=== PATIENT | female | born 1955 | race Caucasian/White ===

== ENCOUNTER → 2024-09-19 | Outpatient (CLI) | payer MEDICARE, OTHER, SELFPAY ==
--- NOTE | 2024-09-19 13:45 | XR_ITS ---
Examination: Screening digital mammography, bilateral Computer aided detection 3-D breast Tomosynthesis, bilateral Date and time of exam: September 19, 2024 at 1345 hours No priors Indication: Screening Technique: Nonmagnified MLO, CC views of the breasts to been obtained, reconstructed from 3-D Tomosynthesis images. R2 computer aided detection program utilized for evaluation of suspicious masses and/or abnormal calcifications. 3-D Tomosynthesis images obtained. Findings: Scattered areas of fibroglandular density 8 mm circumscribed nodule retroareolar region left breast Benign calcifications Impression: BI-RADS Category 2: Benign findings Recommend follow-up spot tomographic views retroareolar nodule left breast as well as left breast sonography to complete the workup
--- NOTE | 2024-09-19 14:00 | XR_ITS ---
Examination: Bone densitometry Date and time of exam:September 19, 2024 1402 hours INDICATIONS: Menopause age 52 Technique: Lumbar spine and hip total bone mineralization values of an calculated. Peak reference and age match control results have been displayed. Findings: Lumbar spine total bone mineralization is0.921 gm/cm2. This is 1.1 standard deviations below peak reference. This is 0.8 standard deviations above age-matched controls. Hip total bone mineralization is 0.865 gm/cm2 This is 0.6 standard deviations below peak reference. This is 0.7 standard deviations above age-matched controls Impression: There is osteopenia based on lumbar spine measurements. There is osteopenia based on hip measurements
== END | disposition home or self-care (01) ==
LOC: CDIM 13:29
PROVIDERS: Referring Provider Family Medicine; Visit Provider Family Medicine
DX: Z12.31 Encounter for screening mammogram for malignant neoplasm of breast (principal); R92.323 Mammographic fibroglandular density, bilateral breasts; N63.42 Unspecified lump in left breast, subareolar; M85.89 Other specified disorders of bone density and structure, multiple sites
CPT/HCPCS: 77063; 77067; 77080

== ENCOUNTER → 2024-10-02 | Outpatient (CLI) | payer MEDICARE, OTHER, SELFPAY ==
[2024-10-02 14:53] LABS: Basophils % (Auto) 1 % (0-2.5); Eosinophils # (Auto) 0.2 Thou/mm3 (0.0-0.5); Eosinophils % (Auto) 4 % (0-10); Hematocrit 38.1 % (36.0-46.0); Hemoglobin 12.6 g/dL (12.0-16.0); Immature Granulocytes % (Auto) 0 % (0-0); Immature Granulocytes Auto 0.02 Thou/mm3 (0.00-0.00); Lymphocytes # (Auto) 1.4 Thou/mm3 (1.0-4.8); Lymphocytes % (Auto) 25 % (10-50); Mean Corpuscular HGB Conc 33.1 g/dl (31.0-37.0); Mean Corpuscular Hemoglobin 29.7 pg (25.0-35.0); Mean Corpuscular Volume 90 fL (80-100); Monocytes # (Auto) 0.6 Thou/mm3 (0.0-0.8); Monocytes % (Auto) 11 % (0-12); Neutrophils # (Auto) 3.3 Thou/mm3 (1.8-7.7); Neutrophils % (Auto) 59 % (37-80); Nucleated Red Blood Cell % 0 /100 WBC (0); Platelet Count 229 Thou/mm3 (140-440); Red Blood Count 4.24 Miln/mm3 (4.00-5.20); White Blood Count 5.6 Thou/mm3 (3.6-11.0)
[2024-10-02 14:57] LABS: Alanine Aminotransferase 43 U/L (10-49); Albumin, Serum 4.7 gm/dL (3.4-4.8); Albumin/Globulin Ratio 2.1 (1.2-2.2); Alkaline Phosphatase 127 U/L (46-116); Anion Gap 9 (7-16); Aspartate Amino Transferase 34 U/L (0-34); BUN/Creatinine Ratio 13 Ratio (12-20); Bilirubin,Total 0.5 mg/dL (0.3-1.2); Blood Urea Nitrogen 10 mg/dL (9-23); Calcium 8.9 mg/dL (8.3-10.6); Calcium (Corrected) 8.9 mg/dL (8.5-10.1); Carbon Dioxide 29.5 mMol/L (20.0-31.0); Cardiac Risk Estimate 5.8 RATIO (3.7-5.6); Chloride 105 mMol/L (98-107); Cholesterol 286 mg/dL (132-200); Creatinine (Component) 0.8 mg/dL (0.6-1.3); Globulin 2.2 gm/dL (2.3-3.5); Glucose 98 mg/dL (74-106); HDL Cholesterol 49 mg/dL (40-60); LDL Cholesterol,Calculated 211 mg/dL (0-130); Osmolality,Calculated 283 (275-295); Potassium 4.6 mMol/L (3.4-5.1); Sodium 143 mMol/L (136-145); Total Protein 6.9 gm/dL (5.7-8.2); Triglycerides 131 mg/dL (30-150); eGFR > 60 See Note
== END | disposition home or self-care (01) ==
LOC: COPL 13:23
PROVIDERS: PCP Family Medicine; Referring Provider Family Medicine; Visit Provider Family Medicine
DX: I10 Essential (primary) hypertension (principal); I48.91 Unspecified atrial fibrillation; E78.5 Hyperlipidemia, unspecified
CPT/HCPCS: 36415; 80053; 80061; 85025

== ENCOUNTER → 2024-10-26 | Outpatient (CLI) | payer MEDICARE, OTHER, SELFPAY ==
--- NOTE | 2024-10-26 09:58 | XR_ITS ---
Examination: PA lateral chest 2 views TECHNIQUE: Upright PA lateral chest 2 views. Date and time: October 26, 2024 1024 hours Comparison May 09, 2019. INDICATIONS: Coughing 3 weeks. FINDINGS: Minor subsegmental atelectasis left base. Normal heart size. No pneumonia or pulmonary edema. Moderate osteopenia. IMPRESSION: No pneumonia or pulmonary edema.
== END | disposition home or self-care (01) ==
LOC: CDIM 09:33
PROVIDERS: PCP Family Medicine; Referring Provider Student in an Organized Health Care Education/Training Program; Visit Provider Student in an Organized Health Care Education/Training Program
DX: R05.9 Cough, unspecified (principal)
CPT/HCPCS: 71046

== ENCOUNTER 2024-10-30 10:34 | Emergency (ER) | payer MEDICARE, OTHER, SELFPAY ==
[2024-10-30 10:47] VITALS: BP 175/98; PULSE 82; RESP 17; TEMP 36.8; O2SAT 96; BMI 26.5
--- NOTE | 2024-10-30 11:07 | XR_ITS ---
Examination: CT soft tissue neck with intravenous contrast CT chest with intravenous contrast 2-D coronal and sagittal reconstructions Time of exam: October 30, 2024 1614 hours INDICATIONS: Left-sided neck swelling and coughing today CTDI: vol (mGy) : 25 DLP: (mGycm): 661 Technique: Multiple axial images of the chest, soft tissue neck with intravenous contrast, 3.0 mm slice thickness. Images obtained post intravenous injection Isovue 370 50 cc. 2-D sagittal and coronal reconstructions. Low dose protocols were performed. One or more of the following dose reduction techniques were used; automated exposure control, adjustment of the mA and/or KV according to patient size, use of iterative reconstruction technique. Findings: Symmetrical optic globes Symmetrical nasopharynx oropharynx Small nonspecific carotid triangle lymph nodes Symmetrical parotid glands The larynx appears normal Thyroid lobes exhibit symmetry, 3 mm right thyroid nodule Normal epiglottis No prevertebral soft tissue prominence Significant osteopenia No thoracic aortic aneurysmal dilatation No pulmonary artery filling defects No paratracheal tracheobronchial or bronchopulmonary adenopathy No pneumonia or pulmonary edema or pleural disease Fatty infiltration throughout the liver Follow-up versus small gallstone No pancreatic or splenic or adrenal mass No hydronephrosis IMPRESSION: No soft tissue neck mass or pathologic lymphadenopathy No mediastinal lymphadenopathy No pneumonia, pulmonary edema, pleural disease or pulmonary nodules
[2024-10-30 11:28] LABS: Lactate (Lactic Acid) 1.1 mMol/L (0.4-2.0)
[2024-10-30 11:37] LABS: Basophils % (Auto) 1 % (0-2.5); Eosinophils # (Auto) 0.2 Thou/mm3 (0.0-0.5); Eosinophils % (Auto) 3 % (0-10); Hematocrit 39.6 % (36.0-46.0); Hemoglobin 13.1 g/dL (12.0-16.0); Immature Granulocytes % (Auto) 1 % (0-0); Immature Granulocytes Auto 0.05 Thou/mm3 (0.00-0.00); Lymphocytes # (Auto) 1.4 Thou/mm3 (1.0-4.8); Lymphocytes % (Auto) 22 % (10-50); Mean Corpuscular HGB Conc 33.1 g/dl (31.0-37.0); Mean Corpuscular Hemoglobin 29.7 pg (25.0-35.0); Mean Corpuscular Volume 90 fL (80-100); Monocytes # (Auto) 0.7 Thou/mm3 (0.0-0.8); Monocytes % (Auto) 11 % (0-12); Neutrophils # (Auto) 3.9 Thou/mm3 (1.8-7.7); Neutrophils % (Auto) 63 % (37-80); Nucleated Red Blood Cell % 0 /100 WBC (0); Platelet Count 235 Thou/mm3 (140-440); RDW Standard Deviation 44.1 fL (36.4-46.3); Red Blood Count 4.41 Miln/mm3 (4.00-5.20); White Blood Count 6.2 Thou/mm3 (3.6-11.0)
[2024-10-30 11:55] LABS: Alanine Aminotransferase 38 U/L (10-49); Albumin, Serum 4.5 gm/dL (3.4-4.8); Albumin/Globulin Ratio 1.7 (1.2-2.2); Alkaline Phosphatase 131 U/L (46-116); Anion Gap 7 (7-16); Aspartate Amino Transferase 17 U/L (0-34); BUN/Creatinine Ratio 14 Ratio (12-20); Bilirubin,Total 0.5 mg/dL (0.3-1.2); Blood Urea Nitrogen 11 mg/dL (9-23); Calcium 9.5 mg/dL (8.3-10.6); Calcium (Corrected) 9.5 mg/dL (8.5-10.1); Carbon Dioxide 29.9 mMol/L (20.0-31.0); Chloride 106 mMol/L (98-107); Creatinine (Component) 0.8 mg/dL (0.6-1.3); Estimated Creatinine Clearance 60.7 mL/min (>60); Globulin 2.6 gm/dL (2.3-3.5); Glucose 108 mg/dL (74-106); Lipase 39 U/L (12-53); Osmolality,Calculated 285 (275-295); Sodium 143 mMol/L (136-145); Total Protein 7.1 gm/dL (5.7-8.2); eGFR > 60 See Note
--- NOTE | 2024-10-30 15:31 | EDNOTE_ITS ---
ED Neck Injury Pain RME/HPI General Chief Complaint: Neck Pain/Injury Stated Complaint: Neck pain sent by Dr. Andrade Time Seen by Provider: 10/30/24 15:30 Arrival date/time: 10/30/24 10:34 RME / HPI RME / HPI Narrative: patient presents to ER sent by PCP for imaging study of neck. she denies n/t to bilateral upper or lower extremity. Onset (ago): week(s) (2) Place: home Severity: moderate Severity scale (1-10): 6 Quality: dull Duration: intermittent Relieving factors: none Exacerbating factors: movement of neck Treatments prior to arrival: none Related Data Home Medications ?Medication ?Instructions ?Recorded ?Confirmed metoprolol succinate 50 mg 25 mg PO DAILY ##0 01/07/09 05/09/19 tablet,extended release 24 hr (Toprol XL) flecainide PO 05/09/19 05/09/19 rivaroxaban [Xarelto] PO 05/09/19 05/09/19 Previous Rx's ?Medication ?Instructions ?Recorded albuterol sulfate 90 mcg/actuation See Rx Instructions inhalation 05/09/19 aerosol inhaler .COMPLEX PRN wheezing / coug h / shortness of breath #6.7 grams benzonatate 100 mg capsule See Rx Instructions .Route 05/09/19 (Tessalon Perles) .COMPLEX cough #30 caps inhalational spacing device #1 ea 05/09/19 (Aerochamber MV spacer) prednisone 20 mg tablet See Rx Instructions PO QAM # 9 tabs 05/09/19 Allergies Allergy/AdvReac Type Severity Reaction Status Date / Time hydrocodone Allergy Unknown ITCHING Verified 10/30/24 10:42 Penicillins Allergy Unknown RASH Verified 10/30/24 10:42 Sulfa (Sulfonamide Allergy Unknown RASH Verified 10/30/24 10:42 Antibiotics) Review of Systems Review of Systems Systems Reviewed: All systems reviewed, normal except as documented Constitutional Constitutional: Reports system reviewed and no additional complaints, except as documented ENT Ears, Nose, Mouth, and Throat: Reports system reviewed and no additional complaints, except as documented Cardiovascular Cardiovascular: Reports system reviewed and no additional complaints, except as documented Respiratory Respiratory: Reports system reviewed and no additional complaints, except as documented Gastrointestinal Gastrointestinal: Reports system reviewed and no additional complaints, except as documented Musculoskeletal Musculoskeletal: Reports system reviewed and no additional complaints, except as documented Neurologic Neurologic: Reports system reviewed and no additional complaints, except as documented ED Exam General General appearance: Present alert, in no apparent distress and appears intoxicated Head Head exam: Present atraumatic and normocephalic Eye Eye exam: Present normal appearance and PERRL ENT ENT exam: Present normal exam and normal oropharynx Neck Neck exam: Present normal inspection, full ROM and trachea midline Chest Chest inspection: Present normal inspection Respiratory Respiratory exam: Present normal lung sounds bilaterally Cardiovascular Cardiovascular exam: Present regular rate and normal rhythm Extremities Exam Extremities exam: Present normal inspection and full ROM Neurological Exam Neurological exam: Present alert and oriented X3 Psychiatric Psychiatric exam: Present normal affect and normal mood Skin Skin exam: Present warm Course Quality Measures none Orders Category Date Time Status CT Screening NOW Care 10/30/24 11:[address] soft tissue neck chest w Stat Exams 10/30/24 11:07 Completed CBC Stat Lab 10/30/24 11:18 Completed CMP [Comprehensive Metabolic Panel] Stat Lab 10/30/24 11:18 Completed Lactic Acid [Lactate (Lactic Acid)] Stat Lab 10/30/24 11:18 Completed Lipase Stat Lab 10/30/24 11:18 Completed Vital Signs Vital signs: Vital Signs Temperature 98.2 F 10/30/24 10:47 Pulse Rate 82 10/30/24 10:47 Respiratory Rate 17 10/30/24 10:47 Blood Pressure 175/98 H 10/30/24 10:47 Pulse Oximetry (%) 96 10/30/24 10:47 Oxygen Delivery Method Room Air 10/30/24 10:47 Neck Pain MDM Narrative MDM Narrative:: labs and CT unremarkable. patient encouraged to f/up with PCP Patient data External records reviewed:: None Clinical information provided by:: patient Social determinants that could affect healthcare access:: none Patient has the following chronic illnesses:: na How is presenting disease/condition affected by chronic disease/condition?: exacerbated by Evaluation data The following diagnostics were reviewed and interpreted by me:: lab results and radiology exam(s) Lab and/or radiology exams considered but not ordered:: both considered and ordered Interpretation Summary: na Medications / Prescriptions Medications or Prescriptions considered but not ordered:: na Medication administrations:: na Consultations Consultation(s) initiated? (list below): No Diagnosis Neck Differential Diagnosis: disc disorder of cervical region, whiplash injury to neck, closed subluxation of cervical spine, fracture of cervical spine without lesion of spinal cord, cervical radiculopathy, vertebral artery dissection, cervical spondylosis and strain of neck muscle Most likely diagnosis given after review of the tests above:: lymphadenopathy Admission Indicated Admission indicated?: not indicated Admission Request Was there a request for admission?: No Disposition Plan Disposition Plan: Discharge Discharge Attestation Discharge Attestation: The patient and all family members were given an opportunity to ask questions and understood the discharge instructions. Discharge instructions specifically effects, indications for sooner follow up or return to the emergency department, and the expected course of current diagnosis. Patient condition: Stable Discharge Plan Plan Patient Disposition: HOME (Self Care) Prescriptions/Referrals Prescriptions/Med Rec: No Action flecainide PO rivaroxaban [Xarelto] PO (DME) Aerochamber MV spacer See Dose Instructions .ROUTE .MEDSUPPLY Qty: 1 0RF Dose Instruction: As directed Rx Instructions: As directed albuterol sulfate 90 mcg/actuation HFA aerosol inhaler See Rx Instructions INH .COMPLEX PRN (Reason: wheezing / cough / shortness of breath) Qty: 6.7 0RF Rx Instructions: INH PRN; 1-2 puffs Q4-6 hours prn. administer with spacer prednisone 20 mg tablet See Rx Instructions PO QAM Qty: 9 0RF Rx Instructions: PO QAM; Take 40mg (2 tabs) PO QAM x 3 days, then 20mg (1 tab) PO QAM x 3 days benzonatate [Tessalon Perles] 100 mg capsule See Rx Instructions .Route .COMPLEX Qty: 30 0RF Rx Instructions: 1-2 cap(s) PO Q8 hours prn cough metoprolol succinate [Toprol XL] 50 MG tablet extended release 24 hr 25 mg PO DAILY Qty: 0 Referrals: Arvin Andrade MD [Primary Care Provider] - In 1 week Problem List Clinical Impression: Anterior cervical lymphadenopathy Patient/Caregiver Discharge Instructions Education Materials: Lymphadenopathy Print Language: [place] Stand Alone Forms: Kimberly Award Info., Patient Portal Info Letter
== END 2024-10-30 15:50 | disposition home or self-care (01) ==
PROVIDERS: Physician Assistant; Emergency Provider Emergency Medicine; PCP Family Medicine
DX: R59.0 Localized enlarged lymph nodes (principal)
CPT/HCPCS: 36415; 70491; 71260; 80053; 83605; 83690; 85025; 99285; A4649; Q9967